=== PATIENT | female | born 1970 | race African-American/Black ===

== ENCOUNTER 2025-03-17 06:25 | Day surgery (SDC) | payer OTHER ==
[2025-03-15 13:24] VITALS: BMI 41.3
[2025-03-17 09:53] LABS: ABSOLUTE IMMATURE GRANULOCYTES 0.01 x10^3/uL (0.0-0.031); BASOPHILS # 0.03 x10^3/uL (0.01-0.08); EOSINOPHIL % 2.1 % (0.7-5.8); EOSINOPHILS # 0.14 x10^3/uL (0.04-0.36); HEMOGLOBIN 13.3 g/dL (11.2-15.7); MCHC 31.7 g/dl (32.2-35.5); MEAN CELL VOLUME 88.6 fl (79.4-94.8); MEAN PLT VOLUME 11.3 fl (9.4-12.3); MONOCYTE # 0.46 x10^3/uL (0.24-0.86); PLATELET COUNT 227 x10^3/uL (182-369); RDW 13.5 % (12.3-16.6)
[2025-03-17 09:59] LABS: INR 1.11 (0.83-1.09); PROTHROMBIN TIME (PATIENT) 12.2 SEC (9.7-13.0)
[2025-03-17 10:02] LABS: ACTIVATED PTT 27.5 SECONDS (25.2-36.5)
[2025-03-17 10:41] LABS: CHLORIDE 108 mmol/L (98-107); SODIUM 139 mmol/L (136-145)
[2025-03-17 10:45] LABS: ALBUMIN 3.5 g/dl (3.4-5.0); ANION GAP 6 mmol/L (4-13); BLOOD UREA NITROGEN 8.9 mg/dL (7-18); CALCIUM 9.2 mg/dL (8.5-10.1); CO2 25 mmol/L (21-32); GLUCOSE,RANDOM 105 mg/dL (74-106)
[2025-03-17 10:48] LABS: SGOT/AST 16 U/L (15-37)
[2025-03-17 10:49] LABS: CREATININE 0.8 mg/dL (0.55-1.3)
[2025-03-17 10:50] LABS: BILIRUBIN,TOTAL 0.7 mg/dL (0.2-1); TOT PROT 8.3 g/dl (6.4-8.2)
[2025-03-17 10:51] LABS: ALK PHOS 44 U/L (45-117)
[2025-03-17 11:28] LABS: SGPT/ALT 15 U/L (13-61)
[2025-03-17] MEDS ORDERED: PROPOFOL 40 ML ONE (13:11)
[2025-03-17] MEDS ORDERED: MIDAZOLAM HCL 2 MG/2 ML SINGLE DOSE VIAL ONE (13:11)
[2025-03-17] MEDS ORDERED: SUCCINYLCHOLINE CHLORIDE 200 MG/10 ML SYRINGE ONE (13:11)
[2025-03-17] MEDS ORDERED: DEXAMETHASONE SOD PHOSPHATE 4 MG/1 ML VIAL ONE (13:12)
[2025-03-17] MEDS ORDERED: KETOROLAC TROMETHAMINE 30 MG/1 ML VIAL ONE (13:12)
[2025-03-17] MEDS ORDERED: ONDANSETRON 4 MG/2 ML VIAL ONE (13:12)
[2025-03-17] MEDS: ceFAZolin 2 GRAM PREMIX BAG IVPB ONE (13:35)
[2025-03-17] MEDS ORDERED: ceFAZolin SODIUM 1 GM VIAL ONE (13:36)
[2025-03-17] MEDS ORDERED: IBUPROFEN 600 MG TABLET (FP) PO PRN (14:17)
[2025-03-17] MEDS ORDERED: IBUPROFEN 800 MG/8 ML IJ IVPB PRN (14:17)
[2025-03-17] MEDS ORDERED: ACETAMINOPHEN 325 MG TABLET (FP) PO PRN (14:17)
[2025-03-17] MEDS ORDERED: ONDANSETRON 4 MG/2 ML VIAL IVPUSH PRN (14:18)
[2025-03-17] MEDS ORDERED: LACTATED RINGERS SOLUTION 1,000 ML IV SCH ×2 (14:30)
[2025-03-17] MEDS ORDERED: ACETAMINOPHEN INJECTION 100 ML ONE (14:52)
[2025-03-17] MEDS: ACETAMINOPHEN 1000 MG/100 ML BAG IVPB ONE (14:53)
[2025-03-17 15:09] VITALS: PULSE 66; RESP 16
[2025-03-17] MEDS ORDERED: oxyCODONE HCL 5 MG TABLET ONE (15:32)
[2025-03-17] MEDS: oxyCODONE HCL 5 MG TABLET PO PRN (15:51)
[2025-03-17 16:07] VITALS: BP 150/70; TEMP 97.6
[2025-03-18] MEDS ORDERED: oxyCODONE HCL 5 MG TABLET PO PRN (02:19)
== END 2025-03-17 16:55 | disposition home or self-care (01) ==
LOC: JASU-SURG 06:25
PROVIDERS: ATTEND Obstetrics & Gynecology
PROC: 0U5B8ZZ Destruction of Endometrium, Via Natural or Artificial Opening Endoscopic (ICD-10-PCS; principal; 2025-03-17 13:00)
DX: N92.0 Excessive and frequent menstruation with regular cycle (principal); N84.0 Polyp of corpus uteri
CPT/HCPCS: 36415; 80053; 84702; 85025; 85610; 85730; 86850; 86900; 86901; 88305-TC; 94760; J0131